=== PATIENT | male | born 1955 | race Caucasian/White ===

== ENCOUNTER 2020-04-06 09:07 | Outpatient (CLI) | payer OTHER, SELFPAY ==
--- NOTE | 2020-04-12 16:37 | WPDPFTINT ---
PFT Interpretation PFT Interpretation: DOS: 04/06/2020 REQUESTING: Dr Chang REASON FOR TESTING: shortness of breath PULMONARY FUNCTION TESTS Spirometry: FEV1 109%, FVC 101%, normal FEV1%. No change with bronchodilator. Lung volumes: TLC 119%, upper limit of normal. RV 132% mild air trapping. Increased airway resistance 262%. . Diffusion: DLCO 91%, normal Flow volume loop: Normal. IMPRESSION: Normal spirometry. Mild air trapping is consistent with an obstructive process. Increased airway resistance. No change with bronchodilator. Anahi Chang MD
== END 2020-04-06 09:08 | disposition home or self-care (01) ==
PROVIDERS: PCP Family Medicine; Visit Provider Internal Medicine Critical Care Medicine
DX: J45.909 Unspecified asthma, uncomplicated (principal)
CPT/HCPCS: 94060; 94726; 94729